=== PATIENT | female | born 1950 | race Two or more races ===

== ENCOUNTER 2023-10-18 12:03 | Inpatient (IN) | payer OTHER, MEDICAID ==
[~2023-10-18] VITALS: Ht 160 cm; Wt 118.9 kg
[2023-10-18] MEDS: cloNIDine HCL 0.1 MG TAB PO ONE ×2 (14:28→15:34)
[2023-10-18] MEDS: HYDROcodone-ACET 5/325MG TAB PO ONE (15:36)
[2023-10-18] MEDS ORDERED: hydrALAZINE HCL 20 MG/ML VL IV ONE (17:00)
[2023-10-18] MEDS: hydrALAZINE HCL 20 MG/ML VL IM ONE (17:29)
[2023-10-18] MEDS: dilTIAZem 25 MG/5 ML VIAL IV ONE (18:15)
[2023-10-18 18:59] LABS: Basophils # (auto) 0 10 ^3/uL (0-0.2); Basophils % (auto) 0.6 % (0.0-2.0); Eosinophils # (auto) 0.2 10 ^3/uL (0-0.8); Eosinophils % (auto) 2.6 % (0.0-7.0); Hematocrit 36.6 % (36.0-46.0); Lymphocytes # (auto) 3.1 10 ^3/uL (0.4-5.4); Lymphocytes % (auto) 36.7 % (10.0-50.0); Mean Corpuscular Hemoglobin 27.7 pg (28.0-32.0); Mean Corpuscular Hgb Conc. 32.7 g/dL (32.0-36.0); Mean Corpuscular Volume 84.7 fL (80.0-100.0); Monocytes # (auto) 0.7 10 ^3/uL (0-1.3); Neutrophils # (auto) 4.5 10 ^3/uL (1.6-8.6); Neutrophils % (auto) 52.1 % (37.0-80.0); Red Blood Cells 4.32 10^6/uL (4.0-5.20); Red Cell Distribution Width 14.1 % (11.8-14.3); White Blood Cell 8.6 10^3/uL (4.4-10.8)
[2023-10-18 19:16] LABS: INR 1.05 (0.9-1.15); Partial Thromboplastin Time 29.4 SEC (24.5-34.5)
[2023-10-18 19:19] LABS: Alanine Aminotransferase 23 U/L (7-40); Alkaline Phosphatase 76 U/L (46-116); Anion Gap 5 (5-15); Aspartate Aminotransferase 25 U/L (13-40); Bilirubin, Total 0.6 mg/dL (0.2-1.0); Blood Urea Nitrogen 16 mg/dL (9-23); Calcium 9.6 mg/dL (8.5-10.1); Carbon Dioxide 29 mmol/L (20-30); Chloride 106 mmol/L (98-107); Glucose 115 mg/dL (74-106); Potassium 3.7 mmol/L (3.5-5.1); Sodium 140 mmol/L (136-145); Total Protein 6.7 g/dL (5.7-8.2)
[2023-10-19 01:12] VITALS: PULSE 64; RESP 16; O2SAT 99
[2023-10-19] MEDS: NITROGLYCERIN 2% OINT 1GM PKG TD ONE (01:22)
[2023-10-19] MEDS ORDERED: MORPHINE SULFATE INJ 2 MG/ml SYRG IV PRN (01:30)
[2023-10-19] MEDS ORDERED: NITROGLYCERIN 0.4 MG SL TAB SL PRN (01:30)
[2023-10-19] MEDS ORDERED: HYDROcodone-ACET 5/325MG TAB PO PRN (01:45)
[2023-10-19] MEDS ORDERED: ONDANSETRON HCL 4 MG/2 ML VIAL IV PRN (01:45)
[2023-10-19] MEDS ORDERED: ACETAMINOPHEN 325 MG TAB PO PRN (01:45)
[2023-10-19 03:48] VITALS: PULSE 75; RESP 18; O2SAT 97
[2023-10-19 05:47] LABS: Basophils # (auto) 0.1 10 ^3/uL (0-0.2); Basophils % (auto) 0.6 % (0.0-2.0); Eosinophils # (auto) 0.3 10 ^3/uL (0-0.8); Eosinophils % (auto) 2.8 % (0.0-7.0); Hemoglobin 12.3 g/dL (12.2-16.2); Lymphocytes # (auto) 2.3 10 ^3/uL (0.4-5.4); Lymphocytes % (auto) 23.3 % (10.0-50.0); Mean Corpuscular Hemoglobin 27.5 pg (28.0-32.0); Mean Corpuscular Hgb Conc. 32.3 g/dL (32.0-36.0); Mean Corpuscular Volume 85.1 fL (80.0-100.0); Monocytes # (auto) 0.9 10 ^3/uL (0-1.3); Neutrophils # (auto) 6.4 10 ^3/uL (1.6-8.6); Neutrophils % (auto) 64.3 % (37.0-80.0); Nucleated Red Blood Cells % 0.1 %; Red Blood Cells 4.46 10^6/uL (4.0-5.20)
[2023-10-19 06:06] LABS: INR 1.06 (0.9-1.15); Prothrombin Time 11.1 sec (9.3-11.8)
[2023-10-19 06:24] LABS: Chloride 108 mmol/L (98-107); Potassium 3.2 mmol/L (3.5-5.1); Sodium 140 mmol/L (136-145)
[2023-10-19 06:25] LABS: Anion Gap 7 (5-15); Calcium 9.2 mg/dL (8.7-10.4); Carbon Dioxide 25 mmol/L (20-30)
[2023-10-19 06:30] LABS: BUN/Creatinine Ratio 13.7 (10.0-20.0); Blood Urea Nitrogen 10 mg/dL (9-23); Glucose 109 mg/dL (74-106)
[2023-10-19 07:30] VITALS: PULSE 65; RESP 16; O2SAT 95
[2023-10-19] MEDS: PANTOPRAZOLE 40 MG/10 ML VIAL INJ IV SCH (10:07)
[2023-10-19] MEDS: ENOXAPARIN SOD 40 MG/0.4 ML SYRINGE SC SCH (10:07)
[2023-10-19 13:11] LABS: Urine Bacteria NONE SEEN /hpf (None Seen); Urine Blood Negative /uL (Negative); Urine Clarity Clear (Clear); Urine Color Colorless (Yellow); Urine Mucus FEW (None Seen); Urine Protein, UAD Negative (Negative); Urine Specific Gravity 1.009 (1.001-1.035); Urine Urobilinogen Normal (Negative); Urine WBC <1 /hpf (0 - 5); Urine pH 7.5 (5.0-8.0)
[2023-10-19] MEDS: LOSARTAN POTASSIUM 50 MG TAB PO SCH (13:42)
[2023-10-19] MEDS: SPIRONOLACTONE 25 MG TAB PO SCH (13:51)
[2023-10-19] MEDS: IOHEXOL 350 MG/ML 100ML IJ ONE (16:33)
[2023-10-19] MEDS: cloNIDine HCL 0.1 MG TAB PO PRN (16:35)
[2023-10-19] MEDS: hydroCHLOROthiazide 25 MG TAB PO SCH (18:55)
[2023-10-19 19:25] VITALS: PULSE 73; RESP 14; O2SAT 97
[2023-10-19] MEDS: cloNIDine HCL 0.1 MG TAB PO SCH (21:09)
[2023-10-20] VITALS (7 sets, daily range): BP systolic 146–175; BP diastolic 50–58; PULSE 56–71; RESP 18–20; TEMP 97.6–97.8; O2SAT 94–98
[2023-10-20 06:16] LABS: Chloride 105 mmol/L (98-107); Potassium 3.4 mmol/L (3.5-5.1); Sodium 139 mmol/L (136-145)
[2023-10-20 06:17] LABS: Anion Gap 7 (5-15); Carbon Dioxide 27 mmol/L (20-30)
[2023-10-20 06:18] LABS: Calcium 9.7 mg/dL (8.5-10.1)
[2023-10-20 06:22] LABS: BUN/Creatinine Ratio 14.6 (10.0-20.0); Blood Urea Nitrogen 13 mg/dL (9-23); Glucose 101 mg/dL (74-106)
[2023-10-21 05:00] VITALS: BP 169/44; PULSE 57; RESP 18; TEMP 98; O2SAT 95
[2023-10-21 08:00] VITALS: PULSE 52; O2SAT 96
[2023-10-21 09:07] VITALS: BP 152/40; PULSE 59; RESP 18; TEMP 98.1; O2SAT 98
[2023-10-21 12:48] VITALS: BP 161/84; PULSE 55; RESP 18; TEMP 98.7; O2SAT 100
[2023-10-21] MEDS ORDERED: CLON0.1T PO (15:11)
[2023-10-21] MEDS ORDERED: TRIA75TA11 PO (15:11)
[2023-10-21] MEDS ORDERED: LOSA50TA46 PO (15:11)
[2023-10-21 17:09] VITALS: BP 162/81; PULSE 57; RESP 17; TEMP 97.9; O2SAT 97
== END 2023-10-21 20:53 | disposition home or self-care (01) | DRG 305 ==
LOC: ER 12:03 → TELE 10-19 01:30 → TELE-WESTW 10-19 01:30
PROVIDERS: ADMIT Nurse Practitioner Family; ATTEND Nurse Practitioner Family
DX: I16.0 Hypertensive urgency (principal); Z68.42 Body mass index [BMI] 45.0-49.9, adult; R55 Syncope and collapse; E78.5 Hyperlipidemia, unspecified; Z82.49 Family history of ischemic heart disease and other diseases of the circulatory system; Z87.891 Personal history of nicotine dependence; E66.9 Obesity, unspecified
CPT/HCPCS: 36415; 70450; 71045; 71275; 72040; 80048; 80053; 81001; 83880; 84484; 85025; 85610; 85730; 93005; 93306; 93975; 97110; 97116; 97163; 97530; C9113; G0378

== ENCOUNTER 2024-05-01 15:34 | Emergency (ER) | payer OTHER, MEDICAID ==
[~2024-05-01] VITALS: Ht 167.6 cm; Wt 106.4 kg
[~2024-05-01 15:34] MED LIST: CLON0.1T PO; LOSA-534 PO; TRIA75TA11 PO
[2024-05-01 16:39] VITALS: BP 142/53; PULSE 58; RESP 18; O2SAT 98
[2024-05-01] MEDS ORDERED: ACET-1882 PO (16:58)
[2024-05-01] MEDS: SILVER SULFADIAZINE 1 % TOPICAL CREAM 50GM TOP ONE (17:10)
== END 2024-05-01 17:13 | disposition home or self-care (01) ==
LOC: ER 15:34
DX: T23.071D Burn of unspecified degree of right wrist, subsequent encounter (principal); X10.2XXD Contact with fats and cooking oils, subsequent encounter

== ENCOUNTER 2024-06-09 12:46 | Emergency (ER) | payer OTHER, MEDICAID ==
[~2024-06-09] VITALS: Ht 157.5 cm; Wt 107.0 kg
[~2024-06-09 12:46] MED LIST changes: +ACET-1882 PO
[2024-06-09 13:17] VITALS: O2SAT 98
[2024-06-09 15:04] VITALS: BP 153/60; PULSE 70; RESP 15; TEMP 98.6
[2024-06-09] MEDS: cefTRIAXone SOD 1,000 MG VL IM ONE (15:07)
[2024-06-09] MEDS ORDERED: AZIT500T66 PO (15:08)
[2024-06-09] MEDS ORDERED: ACET-1080 PO (15:08)
== END 2024-06-09 15:35 | disposition home or self-care (01) ==
LOC: ER 12:46
DX: U07.1 COVID-19 (principal); J03.90 Acute tonsillitis, unspecified
CPT/HCPCS: 71046; 96372; 99283; J0696